=== PATIENT | male | born 1965 | race Caucasian/White ===

== ENCOUNTER 2024-05-10 08:53 | Day surgery (SDC) | payer OTHER ==
[~2024-05-10] VITALS: Ht 175.3 cm; Wt 81.0 kg
[~2024-05-10 08:53] MED LIST: Lactated Ringer's 1,000 ML IV ONE; propofoL 50 ML IV ONE
[2024-05-10] MEDS ORDERED: CATAPRES-TTS 21 EAC1 (10:07)
[2024-05-10] MEDS ORDERED: CLOP75 (10:08)
[2024-05-10] MEDS ORDERED: LOSARTAN POTAS100 M1 (10:08)
[2024-05-10] MEDS ORDERED: HYDCHL25 (10:10)
[2024-05-10] MEDS ORDERED: Lactated Ringer's 1,000 ML IV ONE (10:30)
== END 2024-05-10 11:50 | disposition home or self-care (01) ==
LOC: ORSCSDS 08:53
PROVIDERS: Internal Medicine Gastroenterology
PROC: 0DBK8ZX Excision of Ascending Colon, Via Natural or Artificial Opening Endoscopic, Diagnostic (ICD-10-PCS; principal; 2024-05-10 10:15)
DX: R19.7 Diarrhea, unspecified (principal); D12.2 Benign neoplasm of ascending colon; R10.9 Unspecified abdominal pain; I10 Essential (primary) hypertension; F41.9 Anxiety disorder, unspecified; Z79.02 Long term (current) use of antithrombotics/antiplatelets; Z79.899 Other long term (current) drug therapy
CPT/HCPCS: 88305; J2704; J7120